=== PATIENT | female | born 1945 | race Caucasian/White ===

== ENCOUNTER → 2017-02-05 | Day surgery (SDC) | payer OTHER ==
[~2017-02-05] MED LIST: ACID REDUCER150 MG PO; ADVAIR 100-501 EAC1 IH; ADVAIR 100-501 EACH INH; ALLERGY10 M1 PO; ALPRAZOLAM PO; ASPIRIN81 MG PO; CLARITIN10 M2 PO; K-DUR10 MEQ PO; LASIX PO; METOPROLOL TAR25 MG PO; MUCUS RELIEF C400 MG PO; POTASSIUM CHLO10 ME1 PO; PRAVACHOL20 MG PO; PROAIR HFA8.5 GM IH; PROAIR HFA8.5 GM INH; PROPAFENONE HC150 MG PO; RANITIDINE HCL150 M1 PO; SILVADENE TOP; TYLENOL325 M1 PO; VIBRAMYCIN100 M1 PO; VITAMIN D1000 UNI1 PO; VITAMIN D1000 UNI2 PO; VITAMIN D1000 UNIT PO; ZANTAC150 M1 PO; ZOFRAN ODT4 MG PO; ZYRTEC10 M2 PO
--- NOTE | ~2017-02-05 | OR ---
Unit #: [id number] #: [id number] Patient: LIZETT BOWEN [id number] [address] [id number] MR#: [id number] NAME: LIZETT BOWEN ROOM: Date of Procedure: 02/05/2017 Admission Date: 02/05/2017 Surgeon: Chet Pepe M.D. : 1945 Attending Physician: Chet Pepe M.D. Referring Physician: Chet Pepe M.D. Primary Care Physician: India Abreu A.P.R.N. OPERATIVE REPORT PROCEDURE PERFORMED Colonoscopy with snare polypectomy hemoclip application and tattooing. INDICATIONS A 71-year-old female with Hemoccult positive stool undergoing colonoscopy for evaluation. MEDICATIONS Monitored anesthesia. POSTOPERATIVE FINDINGS 1. snared piecemeal and hemoclip was applied. The area was tattooed for future reference. 2. Polyp x2, 5 to 6 mm each, transverse colon, snared and sent for histopathology. 3. Rest of the colon exam was normal to cecum. PLAN Follow up on the pathology report. Repeat colonoscopy in years. DESCRIPTION OF PROCEDURE The patient was explained of the procedure, risks, and benefits along with risks and benefits of anesthesia. She was brought to the endoscopy room. Propofol anesthesia was given. Rectal exam was done, which was normal. Colonoscope was lubricated, passed up the rectum, advanced under direct vision all the way to cecum. Cecum was identified by ileocecal valve and appendiceal orifice. I then started to pull the scope out carefully looking. Two polyps were seen as described. I retroflexed in the rectum. Small hemorrhoids seen. Scope was gently pulled out. She tolerated it well. Dictated by... Carmen Espinosa/jacob TD: 02/06/2017 06:42 JOB #: [id number] CC: Sabino Aguilar M.D. Unit #: [id number] #: [id number] Patient: LIZETT BOWEN OPERATIVE REPORT Page 1 of 1 X Chet Pepe MD PROCEDURE OPERATIVE NOTE
[2017-02-05 11:44] LABS: BASOPHIL% 0.2 % (0-2.5); EOSINOPHIL# 0.4 X10e3 (0-0.7); EOSINOPHIL% 4.4 % (0.0-7.0); HEMATOCRIT 39.2 % (35.0-45.0); HEMOGLOBIN 12.9 gm/dL (12.0-16.0); LYMPHOCYTE# 3.2 X10e3 (1.0-3.5); LYMPHOCYTE% 38.9 % (17.0-45.0); MEAN CELL VOLUME 86.2 FL (83-96); MEAN CORPUSCULAR HEMOGLOBIN 28.3 PG (28-34); MEAN CORPUSCULAR HGB CONC 32.8 g/dL (30-36); MEAN PLATELET VOLUME 10.9 FL (6.5-11.5); MONOCYTE% 12.1 % (3.0-12.0); NEUTROPHIL# 3.7 X10e3 (1.5-7.1); NEUTROPHIL% 44.4 % (40-75); PLATELET COUNT 242 X10e3 (140-420); RED BLOOD COUNT 4.55 X10e (3.90-5.30); RED CELL DISTRIBUTION WIDTH 14.2 % (11.0-15.5); WHITE BLOOD COUNT 8.3 X10e3 (4.0-10.5)
[2017-02-05 11:48] LABS: DIFF IND NO
[2017-02-05 12:04] LABS: ALBUMIN SERUM 3.7 g/dL (3.5-5.0); BILIRUBIN,TOTAL 0.6 mg/dL (0.2-2.0); BUN/CREATININE RATIO 7.77; CALCIUM SERUM 9.8 mg/dL (8.4-10.2); CREATININE SERUM 0.9 mg/dL (0.6-1.4); GLOM FILT RATE Estimated 63.9 mL/min (>60); PROTEIN TOTAL SERUM 7.2 g/dL (6.0-8.3)
== END | disposition home or self-care (01) ==
LOC: COPS 08:44
PROVIDERS: Internal Medicine
DX: D12.3 Benign neoplasm of transverse colon (principal); K64.9 Unspecified hemorrhoids; K21.9 Gastro-esophageal reflux disease without esophagitis; J44.9 Chronic obstructive pulmonary disease, unspecified; F17.210 Nicotine dependence, cigarettes, uncomplicated; Z90.49 Acquired absence of other specified parts of digestive tract; Z98.51 Tubal ligation status; Z98.890 Other specified postprocedural states; Z98.42 Cataract extraction status, left eye; Z98.41 Cataract extraction status, right eye; Z79.899 Other long term (current) drug therapy; Z88.2 Allergy status to sulfonamides; Z88.1 Allergy status to other antibiotic agents; Z88.5 Allergy status to narcotic agent; Z79.82 Long term (current) use of aspirin; Z79.51 Long term (current) use of inhaled steroids
CPT/HCPCS: 80053; 85025; 88305